=== PATIENT | male | born 1940 | race Caucasian/White ===

== ENCOUNTER 2020-07-16 07:33 | Outpatient (CLI) | payer MEDICARE, OTHER ==
[2020-07-16 12:02] LABS: #Basophils 0.1 thou/uL (0.0-0.2); #Eosinphils 0.2 thou/uL (0.0-0.7); #Lymphocytes 1.4 thou/uL (1.20-3.40); #Monocytes 0.4 thou/uL (0.11-0.59); #Neutrophils 2.9 thou/uL (1.40-6.50); %Basophils 1.5 % (0.0-1.0); %Eosinophils 3.2 % (0.0-10.0); %Lymphocytes 28.6 % (21.0-51.0); %Monocytes 7.3 % (0.0-10.0); %Neutrophils 59.4 % (42.0-75.0); Hemoglobin 13.7 g/dL (14.0-18.0); Mean Corpuscular HGB CONC 32.9 g/dL (32.0-36.0); Mean Corpuscular Hemoglobin 30.9 pg (27.0-31.0); Mean Platelet Volume 8.2 fL (7.4-10.4); Platelet Count 217 thou/uL (130-400); RBC Distribution Width 12.5 % (11.5-14.5); Red Blood Cell (RBC) Count 4.43 mill/uL (4.70-6.10); White Blood Cell (WBC) Count 4.8 thou/uL (4.8-10.8)
[2020-07-16 12:10] LABS: Bacteria/HPF None Seen HPF (None Seen); Bilirubin Negative (Negative); Blood, Urine Negative (Negative); Clarity Clear (Clear); Glucose, Urine (Dipstick) Normal (Negative); Ketone, Urine Negative (Negative); Leukocyte 25 Leu/uL (Negative); Nitrite Negative (Negative); Protein, Urine (Dipstick) Negative (Neg-Trace); RBC/HPF 0-3 HPF (0-3); Specific Gravity, Urine 1.026 (1.002-1.036); Squamous Epithelial 0-3 HPF (0-3); Urobilinogen Normal mg/dL (Less than 2); WBC/HPF 0-3 HPF (0-3); pH, Urine 5.5 (5.0-9.0)
[2020-07-16 13:02] LABS: Anion Gap 15 mmol/L (10-20); BUN (Urea Nitrogen) 37 mg/dL (8.4-25.7); Calc. Creatinine Clearance 0 mL/min (70-130); Calcium 9.3 mg/dL (7.8-10.44); Carbon Dioxide 24 mmol/L (23-31); Chloride 104 mmol/L (98-107); Estimated GFR-MDRD 37; Glucose 202 mg/dL (83-110); Sodium 139 mmol/L (136-145)
[2020-07-16 17:12] LABS: SARS-CoV-2 MS2 Positive; SARS-CoV-2 N Gene Negative; SARS-CoV-2 S Gene Negative; SARS-CoV-2 by NAA Not Detected (NotDetected); SARS-CoV-2 orf1ab Negative
--- NOTE | 2020-07-20 15:19 | EKG ---
Test Reason : Blood Pressure : / mmHG Vent. Rate : 066 BPM Atrial Rate : 066 BPM P-R Int : 190 ms QRS Dur : 098 ms QT Int : 428 ms P-R-T Axes : 061 -14 044 degrees QTc Int : 448 ms Sinus rhythm with occasional Premature ventricular complexes Otherwise normal ECG No previous ECGs available Confirmed by ISRAEL ORTIZ M.D. ([id number]) on 07/20/2020 3:19:16 PM Referred By: RICKEYRO Confirmed By:ISRAEL ORTIZ M.D.
== END 2020-07-16 07:34 | disposition home or self-care (01) ==
LOC: LABBT 07:33
PROVIDERS: ATTEND Orthopaedic Surgery
DX: Z01.818 Encounter for other preprocedural examination (principal); Z20.828 Contact with and (suspected) exposure to other viral communicable diseases; M17.11 Unilateral primary osteoarthritis, right knee
CPT/HCPCS: 80048; 81001; 85025; 85610; 87081; 93005; U0003; 87635; 93010

== ENCOUNTER 2020-07-16 09:00 | Inpatient (IN) | payer MEDICARE, OTHER ==
[2020-07-16 14:20] VITALS: BMI 36.4
[2020-07-20] MEDS ORDERED: Tranexamic Acid 1,000 MG/10 ML VIAL ONE ×2 (06:56→11:34)
[2020-07-20] MEDS ORDERED: Sodium Chloride 0.9% 100 ML ONE (06:57)
[2020-07-20] MEDS ORDERED: Fentanyl 100 MCG/2 ML VIAL ONE ×5 (07:43→12:36)
[2020-07-20] MEDS ORDERED: Midazolam HCl 2 mg/2 ml Vial ONE (07:43)
[2020-07-20] MEDS ORDERED: Lidocaine 1% (PF) 30 ML VIAL ONE (07:43)
[2020-07-20] MEDS ORDERED: Fentanyl 100 MCG/2 ML VIAL IV PRN (09:05)
[2020-07-20] MEDS ORDERED: traMADol HCl 50 MG TAB PO PRN (09:15)
[2020-07-20] MEDS ORDERED: Zolpidem Tartrate 5 MG TAB PO PRN ×2 (09:15→09:40)
[2020-07-20] MEDS ORDERED: Promethazine HCl 25 MG/ML VIAL IM PRN ×2 (09:15→09:40)
[2020-07-20] MEDS ORDERED: Ondansetron PF 4 MG/2 ML Vial IVP PRN ×2 (09:15→09:40)
[2020-07-20] MEDS ORDERED: Ropivacaine HCl/PF 250 ML in Premix Bag 1 BAG NERVE BLCK SCH (09:15)
[2020-07-20] MEDS ORDERED: Acetaminophen 325 MG TAB PO PRN ×2 (09:15→09:40)
[2020-07-20] MEDS ORDERED: HYDROcodone/Acetaminophen 10/325 mg Tablet PO PRN (09:15)
[2020-07-20] MEDS ORDERED: diphenhydrAMINE 25 MG CAP PO PRN (09:40)
[2020-07-20] MEDS ORDERED: Tranexamic Acid 1,000 MG in Sodium Chloride 0.9% 100 ML IVPB SCH (09:45)
[2020-07-20] MEDS ORDERED: Bupivacaine PF 0.5% 30 ML VIAL ONE (09:56)
[2020-07-20] MEDS ORDERED: PROPOFOL 200 MG/20 ML VIAL ONE (11:56)
[2020-07-20] MEDS ORDERED: Ropivacaine 0.2% HCl/PF (40 MG/20 ML VIAL) ONE (11:56)
[2020-07-20] MEDS ORDERED: Lidocaine 1% PF 5 ML VIAL ONE (11:56)
[2020-07-20] MEDS ORDERED: Bupivacaine HCl 0.5%/Epinephrine 1:200,000/PF 30 ml Vial ONE (11:56)
[2020-07-20] MEDS ORDERED: Bupivacaine 0.5% 10 ML VIAL ONE ×2 (13:47)
[2020-07-20] MEDS ORDERED: Ropivacaine 0.2% HCl/PF 20 ML ONE (14:08)
[2020-07-20] MEDS: CEFAZOLIN 2 GM in Premix Bag 1 BAG IVPB SCH ×2 (14:45→23:30)
[2020-07-20] MEDS: HYDROcodone/Acetaminophen 10/325 mg Tablet PO PRN ×2 (14:52→20:16)
[2020-07-20] MEDS: Sodium Chloride 0.9% 1,000 ML IV SCH ×2 (14:55→20:14)
[2020-07-20] MEDS: metFORMIN 500 MG TAB PO SCH (17:24)
[2020-07-20] MEDS: traMADol HCl 50 MG TAB PO PRN (17:24)
[2020-07-20] MEDS: Aspirin 81 mg Enteric Coated Tablet PO SCH (20:15)
[2020-07-20] MEDS: Tamsulosin HCl 0.4 MG CAP PO SCH (20:16)
[2020-07-20] MEDS: Allopurinol 300 MG TAB PO SCH (20:16)
[2020-07-20] MEDS: Atorvastatin Calcium 40 MG TAB PO SCH (20:16)
[2020-07-21] MEDS: HYDROcodone/Acetaminophen 10/325 mg Tablet PO PRN ×3 (01:55→17:10)
[2020-07-21 05:03] LABS: Hemoglobin 11.5 g/dL (14.0-18.0); Mean Corpuscular HGB CONC 33.3 g/dL (32.0-36.0); Mean Corpuscular Hemoglobin 31.2 pg (27.0-31.0); Mean Corpuscular Volume 93.7 fL (78.0-98.0); Mean Platelet Volume 8.1 fL (7.4-10.4); Platelet Count 189 thou/uL (130-400); RBC Distribution Width 12.7 % (11.5-14.5); Red Blood Cell (RBC) Count 3.69 mill/uL (4.70-6.10); White Blood Cell (WBC) Count 6.9 thou/uL (4.8-10.8)
[2020-07-21] MEDS: Sodium Chloride 0.9% 1,000 ML IV SCH ×2 (05:11→14:14)
--- NOTE | 2020-07-21 05:28 | HP ---
HISTORY OF PRESENT ILLNESS: The patient referred to the hospitalist service by orthopedic surgeon, Dr. Efrain Murdock. The patient had recurrent pain, joint fluid, requiring steroid infusions, was finally advised that the only way to avoid continuing injections was a total knee replacement. He had a right total knee replacement today. PAST MEDICAL HISTORY: Pertinent for hypertension, diabetes mellitus type 2, benign prostatic hypertrophy with prostatism, dyslipidemia, gout, coronary artery disease, post single-vessel SAW OPERATOR. CURRENT MEDICATIONS: Include multiple [id number]-wzwyybd supplements which will not be included, takes 1. Vitamin D3 one tab a day. 2. Metformin 1000 mg twice a day. 3. Flomax 0.4 mg a day. 4. Aspirin 81 mg a day. 5. Rybelsus 7 mg a day. 6. Toprol 25 mg a day. 7. Lipitor 40 mg a day. 8. Allopurinol 300 mg a day. 9. Glipizide 5 mg a day. 10. Losartan/HCTZ 100/25 once a day. ALLERGIES: NO KNOWN DRUG ALLERGIES. PAST SURGICAL HISTORY: He has had bladder cancer, he had a chemotherapy infusion into his bladder, no surgery. He has had cataract surgery bilateral. FAMILY HISTORY: Negative for coronary artery disease. His mother had hypertension and diabetes. SOCIAL HISTORY: . Nonsmoker. Drinks one beer a day occasionally. No illicit drugs. REVIEW OF SYSTEMS: GENERAL: Occasional dizziness. No fainting. No falls. EYES: No double vision, blurred vision, or flashing lights. EAR, NOSE, AND THROAT: No ear pain or drainage. No nasal bleeding. No trouble swallowing. CARDIAC: No chest pain, orthopnea, or paroxysmal nocturnal dyspnea. RESPIRATIONS: No cough, wheezing, or asthma. GASTROINTESTINAL: No nausea, vomiting, diarrhea, or constipation. GENITOURINARY: No hematuria or dysuria. He does have x3 nocturia. MUSCULOSKELETAL: He has no pain or swelling in his legs or muscles except for the pain in his right knee from the surgery. SKIN: No bruising, bleeding, or rash. HEME/LYMPH: No tender or swollen lymph nodes in axilla, inguinal, or cervical area. NEUROLOGIC: No strokes, seizures, or focal weakness. PHYSICAL EXAMINATION: GENERAL: He is alert, pleasant, cooperative man, in no acute distress. VITAL SIGNS: Blood pressure 160/84, temperature 96.2, heart rate was 60, respirations 20. HEAD, EYES, EARS, NOSE, AND THROAT: Reveal pupils equal and round with implants. Extraocular movements are intact. Sclerae are white. Tympanic membranes are clear. Nose is clear. Oral mucous membranes are wet. NECK: Supple without jugular venous distention, adenopathy, or thyromegaly. CHEST: Clear to auscultation and percussion. HEART: Had a regular rate and rhythm without murmurs or gallops. ABDOMEN: Soft. Bowel sounds are normal. There is no hepatosplenomegaly. No masses. No rebound. EXTREMITIES: Reveal trace edema with no cyanosis or clubbing. PULSES: Carotid, radial, femoral, and dorsalis pedis pulses are intact. HEME/LYMPH: No tender or swollen lymph nodes in axilla, inguinal, or cervical area. NEUROLOGIC: Moves all extremities. Cranial nerves 2 through 12 are intact. LABORATORY DATA: COVID negative. Chemistries; creatinine 1.76. Lytes are balanced. BUN 37, blood sugar 202. White count 4.8, hemoglobin 13.7, platelet count 207,000. ADMITTING DIAGNOSES: Post right total knee replacement, diabetes mellitus type 2 with chronic kidney disease stage 3, hypertension, coronary artery disease, prostatism, dyslipidemia, gout. The patient is stable. Postoperative, he is having some pain. Pain medicines have been ordered by Orthopedic Surgery. He may continue his regular home medicines. Incidentally, his EKG revealed normal sinus rhythm with occasional PVCs, otherwise normal, reviewed by me. Job ID: [id number]
[2020-07-21] MEDS ORDERED: Dextrose 50% Abboject 50 ML SYRINGE SLOW IVP PRN (05:48)
[2020-07-21] MEDS ORDERED: Dextrose 5% in Water 1,000 ML IV PRN (05:48)
[2020-07-21] MEDS: HumaLOG 300 UNITS/3 ML VIAL SC PRN ×4 (06:18→22:27)
[2020-07-21] MEDS: glipiZIDE 5 MG TAB PO SCH (06:34)
[2020-07-21 08:20] LABS: #Eosinphils 0.1 thou/uL (0.0-0.7); #Lymphocytes 0.9 thou/uL (1.20-3.40); #Monocytes 0.6 thou/uL (0.11-0.59); #Neutrophils 5.7 thou/uL (1.40-6.50); %Basophils 0.4 % (0.0-1.0); %Eosinophils 1.9 % (0.0-10.0); %Lymphocytes 12.7 % (21.0-51.0); %Monocytes 8.1 % (0.0-10.0); %Neutrophils 76.9 % (42.0-75.0); Hemoglobin 11.5 g/dL (14.0-18.0); Mean Corpuscular HGB CONC 32.5 g/dL (32.0-36.0); Mean Corpuscular Hemoglobin 30.5 pg (27.0-31.0); Platelet Count 197 thou/uL (130-400); RBC Distribution Width 12.8 % (11.5-14.5); Red Blood Cell (RBC) Count 3.77 mill/uL (4.70-6.10); White Blood Cell (WBC) Count 7.4 thou/uL (4.8-10.8)
--- NOTE | 2020-07-21 08:37 | PRG ---
DATE OF SERVICE: 07/21/2020 SUBJECTIVE: Sanya is an 80-year-old male postop day 1 from right total knee arthroplasty. He is doing relatively well. He did have some discomfort last night. He describes this as 08/08, but we have obtained control of it with oral and IV medications. OBJECTIVE: VITAL SIGNS: Temperature 98.8, pulse 70, respiratory rate 18, blood pressure is 129/69. GENERAL: He is alert and oriented to person, place, time, and situation. Responsive and appropriate with examiner. EXTREMITIES: Incision is clean. No strike through. No erythema. He is neurovascularly intact in the right lower extremity. LABORATORY DATA: Hemoglobin and hematocrit 11.5 and 34.6. IMPRESSION: An 80-year-old male postop day 1 right total knee arthroplasty, doing well. PLAN: Continue current care. Probable discharge/transfer to skilled facility postop day 3. Job ID: [id number]
[2020-07-21 08:41] LABS: Anion Gap 14 mmol/L (10-20); BUN (Urea Nitrogen) 19 mg/dL (8.4-25.7); Calc. Creatinine Clearance 76 mL/min (70-130); Calcium 8.1 mg/dL (7.8-10.44); Carbon Dioxide 24 mmol/L (23-31); Chloride 103 mmol/L (98-107); Estimated GFR-MDRD 48; Glucose 263 mg/dL (83-110); Potassium 3.7 mmol/L (3.5-5.1); Sodium 137 mmol/L (136-145)
[2020-07-21] MEDS ORDERED: Non-Formulary Item 1 EACH (Multivitamin [Multi-Vitamin Daily] 1 TABLET Tablet) PO SCH (09:00)
[2020-07-21] MEDS ORDERED: Aspirin 81 mg Enteric Coated Tablet PO SCH (09:00)
[2020-07-21] MEDS: Aspirin 81 mg Enteric Coated Tablet PO SCH ×2 (09:19→22:00)
[2020-07-21] MEDS: Losartan/Hydrochlorothiazide 100 mg/25 mg Tablet PO SCH (09:20)
[2020-07-21] MEDS: Ferrous Gluconate 324 MG TAB PO SCH ×2 (09:20→22:00)
[2020-07-21] MEDS: Multivitamin W/ Minerals 1 TAB PO SCH (09:20)
[2020-07-21] MEDS: metFORMIN 500 MG TAB PO SCH ×2 (09:20→17:09)
[2020-07-21] MEDS: Magnesium Oxide 400 MG TAB PO SCH (09:20)
[2020-07-21] MEDS: Senokot S 8.6-50 MG TAB PO SCH ×2 (09:21→22:00)
[2020-07-21] MEDS: Ascorbic Acid 500 mg Chewable Tablet PO SCH (09:21)
[2020-07-21] MEDS: Cholecalciferol 1,000 UNITS (25 MCG) TAB PO SCH (09:21)
--- NOTE | 2020-07-21 12:48 | OP ---
DATE OF PROCEDURE: 07/20/2020 PREOPERATIVE DIAGNOSIS: Right knee osteoarthrosis. POSTOPERATIVE DIAGNOSIS: Right knee osteoarthrosis. PROCEDURE PERFORMED: Right total knee replacement using [employer] pinless navigation. PRISON OFFICER: Wyatt Parekh PA-C ESTIMATED BLOOD LOSS: Minimal. COMPLICATIONS: None. ANESTHESIA: The patient did have a general anesthetic as well as a preoperative block. IMPLANTS: To the right knee include [employer] total knee system. The femur was a size 5 cruciate-retaining right femur. We used a size 4 primary tibial baseplate. We used a 4 x 9 mm CS X3 tibial poly, and an asymmetric 32 x 10 X3 patella. DISPOSITION: He did go to recovery room in stable condition. INDICATIONS: This is an 80-year-old male, who is presenting for right knee replacement after failing all nonoperative treatment for the right knee pain. PROCEDURE IN DETAIL: After all appropriate consent forms were explained and signed, the patient was taken back to the operating room and at this time was given general anesthetic. Once the level of anesthesia was appropriate, a well-padded tourniquet was placed on the right leg, and the leg was then prepped and draped in standard surgical fashion. The limb was exsanguinated and tourniquet taken up to 300 mmHg. Midline incision was made with a 10 blade down through the skin and subcutaneous tissue. Bovie electrocautery was used to coagulate any brisk venous bleeding. A new blade was used to make a medial parapatellar arthrotomy. Small subperiosteal release was performed medially and excess fat pad was removed. The knee was flexed up to gain access to the femur. The femur was navigated and distal femoral resection was made. Epicondylar access was used to align our sizing jig and this was pinned in place. We sized our femur to be a size 5 cruciate-retaining right femur. 4:1 cutting block was applied and pinned. Anterior and posterior chamfer cuts were then made. We navigated out our proximal tibia and made our proximal tibial resection. Spreaders were used to remove any posterior osteophytes off the back of the femur as well as remaining meniscal tissue. A long alignment conner was then used to achieve correct rotation of our tibial baseplate and we used a size 4 primary tibial baseplate was chosen. This was pinned in place. We trialed the polyethylene and we used a 4 x 9 mm CS X3 tibial poly gave us full extension and good stability throughout range of motion. Two towel clips and a saw were used to cut our patella. Three lug nuts were drilled and an asymmetric 32 x 10 X3 patella was trialed which sat nicely in the trochlear groove. We then drilled our femur and punched our tibia. All components were removed. The knee was thoroughly irrigated and dried. Cement was mixed into the cement gun on the back table. Components were then placed. The knee was held out in full extension until the cement had dried. All excess bone cement was removed. Multiple #2 Vicryl stitches as well as a Quill were used to close our extensor mechanism. 0 Quill followed by a running Monoderm was then used to close the skin. Surgicel glue was then used on the skin. Once this had dried, soft tissue dressing was applied to the limb, tourniquet was let down, and the toes pinked up nicely. The patient was then awakened and taken to the recovery room in stable condition. All counts were correct at the end of the case. The patient did receive preoperative IV antibiotics. The patient was injected with Marcaine for postoperative pain relief. The payroll human resources assistant surgeon was present throughout the procedure, including the approach, placement of implants, and closure. Job ID: [id number]
--- NOTE | 2020-07-21 16:10 | PDOC.HOSPP ---
- Subjective Encounter Date: 07/21/20 Encounter Time: 16:10 Subjective: f/u s/p R TKA POD #1. Some knee pain but working with PT/OT. - Objective Vital Signs & Weight: Vital Signs (12 hours) Temp Pulse Resp BP Pulse Ox 07/21/20 11:22 98.0 F 64 16 140/73 96 07/21/20 08:00 97.9 F 63 16 118/68 91 L Weight Admit Weight 284 lb Weight 284 lb I&O: 07/20/20 07/21/20 07/22/20 06:59 06:59 06:59 Intake Total 2330 Output Total 1200 Balance 1130 Result Diagrams: 07/21/20 08:05 07/21/20 08:05 Additional Labs: Accuchecks 07/21/20 07/21/20 07/21/20 15:48 11:33 06:16 POC Glucose 270 H 217 H 268 H Laboratory Tests 07/16/20 07/21/20 10:00 04:39 Hgb 11.5 L Creatinine 1.76 H Hospitalist ROS - Medication Medications: Active Medications Generic Name Dose Route Start Last Admin Trade Name Freq PRN Reason Stop Dose Admin Hydrocodone Bitart/Acetaminophen 2 tab 07/20/20 09:15 07/21/20 06:15 Hydrocodone/Acetaminophen 10/325 Mg Tablet PO 2 tab Q4H PRN Administration PAIN (4-6) Allopurinol 300 mg 07/20/20 21:00 07/20/20 20:16 Allopurinol 300 Mg Tab PO 300 mg HS ARTUR Administration Ascorbic Acid 500 mg 07/21/20 09:00 07/21/20 09:21 Ascorbic Acid 500 Mg Chewable Tablet PO 500 mg DAILY ARTUR Administration Aspirin 81 mg 07/20/20 21:00 07/21/20 09:19 Aspirin 81 Mg Enteric Coated Tablet PO 81 mg BID ARTUR Administration Atorvastatin Calcium 40 mg 07/20/20 21:00 07/20/20 20:16 Atorvastatin Calcium 40 Mg Tab PO 40 mg HS ARTUR Administration Cholecalciferol 2,000 units 07/21/20 09:00 07/21/20 09:21 Cholecalciferol 1,000 Units (25 Mcg) Tab PO 2,000 units DAILY ARTUR Administration Fentanyl 50 mcg 07/20/20 09:05 07/20/20 14:40 Fentanyl 100 Mcg/2 Ml Vial IV 50 mcg Q1H PRN Administration BREAKTHROUGH PAIN Ferrous Gluconate 324 mg 07/21/20 09:00 07/21/20 09:20 Ferrous Gluconate 324 Mg Tab PO 324 mg BID ARTUR Administration Glipizide 5 mg 07/21/20 07:30 07/21/20 06:34 Glipizide 5 Mg Tab PO 5 mg DAILY-AC ARTUR Administration HCTZ/Losartan Potassium 1 tab 07/21/20 09:00 07/21/20 09:20 Losartan/Hydrochlorothiazide 100 Mg/25 Mg Tablet PO 1 tab DAILY ARTUR Administration Ropivacaine 250 ml/ Device 250 mls @ 0 mls/hr 07/20/20 09:15 07/21/20 12:58 NERVE BLCK 07/22/20 09:16 250 mls INF ARTUR Administration As Directed Sodium Chloride 1,000 mls @ 100 mls/hr 07/20/20 09:45 07/21/20 14:14 Normal Saline 0.9% IV Not Given .Q10H ARTUR Insulin Human Lispro 0 units 07/21/20 05:48 07/21/20 12:57 Humalog 300 Units/3 Ml Vial SC 4 unit .MODERATE SLIDING SC PRN Administration Moderate Correctional Scale Iron/Minerals/Multivitamins 1 tab 07/21/20 09:00 07/21/20 09:20 Multivitamin W/ Minerals 1 Tab PO 1 tab DAILY ARTUR Administration Magnesium Oxide 400 mg 07/21/20 09:00 07/21/20 09:20 Magnesium Oxide 400 Mg Tab PO 400 mg DAILY ARTUR Administration Metformin HCl 1,000 mg 07/20/20 17:00 07/21/20 09:20 Metformin 500 Mg Tab PO 1,000 mg BID-WM ARTUR Administration Metoprolol Succinate 25 mg 07/20/20 21:00 07/20/20 20:16 Metoprolol Succinate Xl 25 Mg Tab PO 25 mg HS ARTUR Administration Senna/Docusate Sodium 2 tab 07/21/20 09:00 07/21/20 09:21 Senokot S 8.6-50 Mg Tab PO 2 tab BID ARTUR Administration Sodium Chloride 10 ml 07/20/20 21:00 07/21/20 09:25 Flush - Normal Saline 10 Ml Syringe IVF 10 ml Q12HR ARTUR Administration Tamsulosin HCl 0.4 mg 07/20/20 21:00 09/21/20 20:16 Tamsulosin Hcl 0.4 Mg Cap PO 0.4 mg HS ARTUR Administration Tramadol HCl 100 mg 07/20/20 09:15 07/20/20 17:24 Tramadol Hcl 50 Mg Tab PO 100 mg Q6H PRN Administration Moderate Pain 4-6 - Exam General Appearance: NAD, awake alert Eye: PERRL, anicteric sclera ENT: normocephalic atraumatic, no oropharyngeal lesions Neck: supple, symmetric, no JVD, no thyromegaly, no lymphadenopathy Heart: RRR, no gallops, no rubs, normal peripheral pulses Heart - other findings: S1, S2 Respiratory: CTAB, no wheezes, no rales, no ronchi, normal chest expansion Gastrointestinal: soft, non-tender, non-distended, normal bowel sounds, no palpable masses Extremities: no cyanosis, 1+ LE edema Extremities - other findings: R knee with surgical dressing in place Skin: normal turgor Neurological: cranial nerve grossly intact, no new deficit Musculoskeletal: normal tone, normal strength Psychiatric: normal affect, A&O x 3 Hosp A/P (1) DM II (diabetes mellitus, type II), controlled Code(s): E11.9 - TYPE 2 DIABETES MELLITUS WITHOUT COMPLICATIONS Status: ron Plan: Labile glucose, continue Glipizide/ISS, serial accuchecks, ADA (2) HTN (hypertension) Code(s): I10 - ESSENTIAL (PRIMARY) HYPERTENSION Status: Chronic Qualifiers: Hypertension type: essential hypertension Qualified Code(s): I10 - Esse ntial (primary) hypertension Plan: Continue home BP regimen, serial BP monitoring (3) CKD (chronic kidney disease), stage III Code(s): N18.3 - CHRONIC KIDNEY DISEASE, STAGE 3 (MODERATE) Status: Chronic Plan: Avoid nephrotoxic meds and limit contrast exposure (4) CAD (coronary artery disease) Code(s): I25.10 - ATHSCL HEART DISEASE OF [place] CORONARY ARTERY W/O ANG PCTRS Status: Chronic Plan: Continue ASA/Lipitor - Plan continue antibiotics, PT/OT, social studies teacher, incentive spirometry, out of bed/ambulate, DVT proph w/SCDs Stable overall Continue routine Joint U protocol Continue ASA/Lipitor OOB with PT/OT DVT ppx AM lab: CBC
[2020-07-21] MEDS: Atorvastatin Calcium 40 MG TAB PO SCH (22:00)
[2020-07-21] MEDS: Tamsulosin HCl 0.4 MG CAP PO SCH (22:00)
[2020-07-21] MEDS: Allopurinol 300 MG TAB PO SCH (22:00)
[2020-07-22] MEDS: Sodium Chloride 0.9% 1,000 ML IV SCH ×4 (01:04→21:04)
[2020-07-22] MEDS: HYDROcodone/Acetaminophen 10/325 mg Tablet PO PRN ×3 (01:05→17:57)
[2020-07-22 05:27] LABS: Hemoglobin 11.3 g/dL (14.0-18.0); Mean Corpuscular HGB CONC 32.5 g/dL (32.0-36.0); Mean Corpuscular Hemoglobin 30.8 pg (27.0-31.0); Mean Corpuscular Volume 94.7 fL (78.0-98.0); Mean Platelet Volume 8.5 fL (7.4-10.4); Platelet Count 182 thou/uL (130-400); RBC Distribution Width 12.8 % (11.5-14.5); Red Blood Cell (RBC) Count 3.68 mill/uL (4.70-6.10); White Blood Cell (WBC) Count 8.1 thou/uL (4.8-10.8)
[2020-07-22] MEDS: HumaLOG 300 UNITS/3 ML VIAL SC PRN ×3 (06:15→16:15)
[2020-07-22] MEDS: glipiZIDE 5 MG TAB PO SCH (06:37)
[2020-07-22] MEDS: Magnesium Oxide 400 MG TAB PO SCH (09:42)
[2020-07-22] MEDS: Losartan/Hydrochlorothiazide 100 mg/25 mg Tablet PO SCH (09:42)
[2020-07-22] MEDS: Aspirin 81 mg Enteric Coated Tablet PO SCH ×2 (09:42→19:32)
[2020-07-22] MEDS: Senokot S 8.6-50 MG TAB PO SCH ×2 (09:42→19:33)
[2020-07-22] MEDS: metFORMIN 500 MG TAB PO SCH ×2 (09:43→16:14)
[2020-07-22] MEDS: Cholecalciferol 1,000 UNITS (25 MCG) TAB PO SCH (09:43)
[2020-07-22] MEDS: Ascorbic Acid 500 mg Chewable Tablet PO SCH (09:43)
[2020-07-22] MEDS: Multivitamin W/ Minerals 1 TAB PO SCH (09:43)
[2020-07-22] MEDS: Ferrous Gluconate 324 MG TAB PO SCH ×2 (09:43→19:32)
[2020-07-22] MEDS ORDERED: Bisacodyl 10 MG SUPP PR PRN ×2 (10:23→14:31)
[2020-07-22] MEDS ORDERED: Calcium Carbonate 500 MG ChewTAB PO PRN (10:39)
--- NOTE | 2020-07-22 10:43 | PRG ---
DATE OF SERVICE: 07/22/2020 SUBJECTIVE: Sanya is an 80-year-old male, postop day #2 from a right total knee arthroplasty. His pain is improved, but he has not had a bowel movement yet and nursing staff reports some tinkling bowel sounds. OBJECTIVE: VITAL SIGNS: Temperature 97.9, pulse 71, respiratory rate 16, O2 saturation 94% on 2 L nasal cannula, blood pressure 142/70. GENERAL: He is alert and oriented to person, place, time, and situation. Responsive and appropriate with examiner. Pleasant and conversive. ABDOMEN: Abdominal exam demonstrates tinkling bowel sounds noted with auscultation in all 4 quadrants, nontender, but he is distended with tympany to percussion. EXTREMITIES: Incision is clean. No strike through, no erythema. NEUROLOGIC: He is neurovascularly intact. He does have a little bit of notable weakness. LABORATORY DATA: Hemoglobin and hematocrit 11.3 and 34.9. noted at 8.1. IMPRESSION: 1. An 80-year-old male postoperative day #2, right total knee arthroplasty. 2. Early ileus, abdominal examination looks significant for. IMPRESSION: Asymptomatic anemia. PLAN: 1. We will make him n.p.o. for now. Also, we will treat him with lactulose as well as Dulcolax suppository. He may resume a regular diet once he has had a bowel movement and his abdominal gas is cleared. 2. Continue current care. 3. Expected discharge possibly tomorrow. Hold discharge for now. Job ID: [id number]
--- NOTE | 2020-07-22 14:33 | PDOC.HOSPP ---
- Subjective Encounter Date: 07/22/20 Encounter Time: 14:25 Subjective: f/u s/p R TKA POD #1. c/o no BM x 3 days but has flatus. Decreased appetite but no N/V. Minimal R knee pain. No dysuria. - Objective Vital Signs & Weight: Vital Signs (12 hours) Temp Pulse Resp BP Pulse Ox 07/22/20 12:00 91 L 07/22/20 10:38 97.5 F L 74 16 119/67 91 L 07/22/20 08:00 94 L 07/22/20 07:30 97.9 F 71 16 142/70 H 94 L 07/22/20 04:00 99.2 F 74 18 120/68 94 L Weight Admit Weight 284 lb Weight 284 lb I&O: 07/21/20 07/22/20 07/23/20 06:59 06:59 06:59 Intake Total 2330 2480 Output Total 1200 1700 Balance 1130 780 Result Diagrams: 07/22/20 04:53 07/21/20 08:05 Additional Labs: Accuchecks 07/22/20 07/22/20 07/21/20 10:48 05:51 21:24 POC Glucose 226 H 202 H 271 H 07/21/20 15:48 POC Glucose 270 H Laboratory Tests 07/16/20 07/21/20 10:00 04:39 Hgb 11.5 L Creatinine 1.76 H Hospitalist ROS - Medication Medications: Active Medications Generic Name Dose Route Start Last Admin Trade Name Freq PRN Reason Stop Dose Admin Hydrocodone Bitart/Acetaminophen 2 tab 07/20/20 09:15 07/22/20 09:41 Hydrocodone/Acetaminophen 10/325 Mg Tablet PO 2 tab Q4H PRN Administration PAIN (4-6) Allopurinol 300 mg 07/20/20 21:00 07/21/20 22:00 Allopurinol 300 Mg Tab PO 300 mg HS ARTUR Administration Ascorbic Acid 500 mg 07/21/20 09:00 07/22/20 09:43 Ascorbic Acid 500 Mg Chewable Tablet PO 500 mg DAILY ARTUR Administration Aspirin 81 mg 07/20/20 21:00 07/22/20 09:42 Aspirin 81 Mg Enteric Coated Tablet PO 81 mg BID ARTUR Administration Atorvastatin Calcium 40 mg 07/20/20 21:00 07/21/20 22:00 Atorvastatin Calcium 40 Mg Tab PO 40 mg HS ARTUR Administration Calcium Carbonate 1,000 mg 07/22/20 10:39 07/22/20 10:52 Calcium Carbonate 500 Mg Chewtab PO 1,000 mg Q4H PRN Administration Heartburn or Indigestion Cholecalciferol 2,000 units 07/21/20 09:00 07/22/20 09:43 Cholecalciferol 1,000 Units (25 Mcg) Tab PO 2,000 units DAILY ARTUR Administration Fentanyl 50 mcg 07/20/20 09:05 07/20/20 14:40 Fentanyl 100 Mcg/2 Ml Vial IV 50 mcg Q1H PRN Administration BREAKTHROUGH PAIN Ferrous Gluconate 324 mg 07/21/20 09:00 07/22/20 09:43 Ferrous Gluconate 324 Mg Tab PO 324 mg BID ARTUR Administration Glipizide 5 mg 07/21/20 07:30 07/22/20 06:37 Glipizide 5 Mg Tab PO 5 mg DAILY-AC ARTUR Administration HCTZ/Losartan Potassium 1 tab 07/21/20 09:00 07/22/20 09:42 Losartan/Hydrochlorothiazide 100 Mg/25 Mg Tablet PO 1 tab DAILY ARTUR Administration Sodium Chloride 1,000 mls @ 100 mls/hr 07/20/20 09:45 07/22/20 11:05 Normal Saline 0.9% IV Not Given .Q10H [facility] Insulin Human Lispro 0 units 07/21/20 05:48 07/22/20 10:54 Humalog 300 Units/3 Ml Vial SC 4 unit .MODERATE SLIDING SC PRN Administration Moderate Correctional Scale Iron/Minerals/Multivitamins 1 tab 07/21/20 09:00 07/22/20 09:43 Multivitamin W/ Minerals 1 Tab PO 1 tab DAILY ARTUR Administration Magnesium Oxide 400 mg 07/21/20 09:00 07/22/20 09:42 Magnesium Oxide 400 Mg Tab PO 400 mg DAILY ARTUR Administration Metformin HCl 1,000 mg 07/20/20 17:00 07/22/20 09:43 Metformin 500 Mg Tab PO 1,000 mg BID-WM ARTUR Administration Metoprolol Succinate 25 mg 07/20/20 21:00 07/21/20 22:00 Metoprolol Succinate Xl 25 Mg Tab PO 25 mg HS ARTUR Administration Senna/Docusate Sodium 2 tab 07/21/20 09:00 07/22/20 09:42 Senokot S 8.6-50 Mg Tab PO 2 tab BID ARTUR Administration Sodium Chloride 10 ml 07/20/20 21:00 07/22/20 09:53 Flush - Normal Saline 10 Ml Syringe IVF 10 ml Q12HR ARTUR Administration Tamsulosin HCl 0.4 mg 07/20/20 21:00 07/21/20 22:00 Tamsulosin Hcl 0.4 Mg Cap PO 0.4 mg HS ARTUR Administration Tramadol HCl 100 mg 07/20/20 09:15 07/20/20 17:24 Tramadol Hcl 50 Mg Tab PO 100 mg Q6H PRN Administration Moderate Pain 4-6 - Exam General Appearance: NAD, awake alert Eye: PERRL, anicteric sclera ENT: normocephalic atraumatic, no oropharyngeal lesions Neck: supple, symmetric, no JVD, no thyromegaly, no lymphadenopathy Heart: RRR, no gallops, no rubs, normal peripheral pulses Heart - other findings: S1, S2 Respiratory: CTAB, no wheezes, no rales, no ronchi Respiratory - other findings: diminished in bases Gastrointestinal: no palpable masses, no guarding, no rigidity, diminished bowl sounds Gastrointestinal - other findings: distended, Extremities: no cyanosis Extremities - other findings: RLE edema and post-surgical changes of the knee Skin: normal turgor Neurological: cranial nerve grossly intact, no new deficit Musculoskeletal: normal tone, generalized weakness Psychiatric: normal affect, A&O x 3 Hosp A/P (1) Constipation Code(s): K59.00 - CONSTIPATION, UNSPECIFIED Status: Acute Qualifiers: Constipation type: slow transit constipation Qualified Code(s): K59.01 - Slow transit constipation Plan: Add Dulcolax supp MS q8h prn, start Mag Citrate 300ml x 1 now, Senokot-S BID (2) DM II (diabetes mellitus, type II), controlled Code(s): E11.9 - TYPE 2 DIABETES MELLITUS WITHOUT COMPLICATIONS Status: Chronic Plan: Continue Glipizide/Metformin, ISS, serial accuchecks (3) HTN (hypertension) Code(s): I10 - ESSENTIAL (PRIMARY) HYPERTENSION Status: Chronic Qualifiers: Hypertension type: essential hypertension Qualified Code(s): I10 - Essential (primary) hypertension Plan: Stable currently, continue home BP regimen (4) CKD (chronic kidney disease), stage III Code(s): N18.3 - CHRONIC KIDNEY DISEASE, STAGE 3 (MODERATE) Status: Chronic (5) CAD (coronary artery disease) Code(s): I25.10 - ATHSCL HEART DISEASE OF [place] CORONARY ARTERY W/O ANG PCTRS Status: Chronic - Plan plan discussed w/ family, PT/OT, forensic social worker, incentive spirometry, out of bed/ambulate, DVT proph w/SCDs Stable overall Continue routine Joint U protocol Continue ASA/Lipitor OOB with PT/OT Dulcolax supp MS q8h PRN Magnesium citrate 300ml x 1 now DVT ppx AM lab: CBC
[2020-07-22] MEDS ORDERED: Magnesium Citrate 300 ML BOT PO SCH (14:45)
[2020-07-22] MEDS: Allopurinol 300 MG TAB PO SCH (19:32)
[2020-07-22] MEDS: Atorvastatin Calcium 40 MG TAB PO SCH (19:32)
[2020-07-22] MEDS: Tamsulosin HCl 0.4 MG CAP PO SCH (19:32)
[2020-07-22] MEDS: traMADol HCl 50 MG TAB PO PRN (19:32)
[2020-07-23 05:53] LABS: Hemoglobin 11.2 g/dL (14.0-18.0); Mean Corpuscular HGB CONC 32.7 g/dL (32.0-36.0); Mean Corpuscular Hemoglobin 30.8 pg (27.0-31.0); Mean Corpuscular Volume 94.2 fL (78.0-98.0); Mean Platelet Volume 8.6 fL (7.4-10.4); Platelet Count 186 thou/uL (130-400); RBC Distribution Width 12.8 % (11.5-14.5); Red Blood Cell (RBC) Count 3.64 mill/uL (4.70-6.10); White Blood Cell (WBC) Count 7.5 thou/uL (4.8-10.8)
[2020-07-23] MEDS: glipiZIDE 5 MG TAB PO SCH (06:05)
[2020-07-23] MEDS: Ferrous Gluconate 324 MG TAB PO SCH (09:30)
[2020-07-23] MEDS: Losartan/Hydrochlorothiazide 100 mg/25 mg Tablet PO SCH (09:30)
[2020-07-23] MEDS: Aspirin 81 mg Enteric Coated Tablet PO SCH (09:30)
[2020-07-23] MEDS: Magnesium Oxide 400 MG TAB PO SCH (09:30)
[2020-07-23] MEDS: Ascorbic Acid 500 mg Chewable Tablet PO SCH (09:30)
[2020-07-23] MEDS: Cholecalciferol 1,000 UNITS (25 MCG) TAB PO SCH (09:30)
[2020-07-23] MEDS: metFORMIN 500 MG TAB PO SCH (09:30)
[2020-07-23] MEDS: Multivitamin W/ Minerals 1 TAB PO SCH (09:31)
[2020-07-23] MEDS: Senokot S 8.6-50 MG TAB PO SCH (09:31)
--- NOTE | 2020-07-23 10:38 | PDOC.HOSPP ---
- Subjective Encounter Date: 07/23/20 Encounter Time: 10:30 Subjective: f/u for constipation with multiple BM's reported after Dulcolax/Mag citrate/Lactulose. Feels much better overall and able to participate with PT this am. - Objective Vital Signs & Weight: Vital Signs (12 hours) Temp Pulse Resp BP Pulse Ox 07/23/20 07:34 98.5 F 72 18 119/68 93 L 07/23/20 03:48 95 07/23/20 03:23 97.4 F L 69 18 146/82 H 95 07/22/20 23:44 93 L 07/22/20 23:17 98.3 F 62 16 127/67 93 L Weight Admit Weight 284 lb Weight 284 lb I&O: 07/22/20 07/23/20 07/24/20 06:59 06:59 06:59 Intake Total 2480 830 Output Total 1700 1325 Balance 780 -495 Result Diagrams: 07/23/20 05:24 07/21/20 08:05 Additional Labs: Accuchecks 07/23/20 07/22/20 07/22/20 05:42 20:00 15:31 POC Glucose 236 H 201 H 264 H 07/22/20 10:48 POC Glucose 226 H Laboratory Tests 07/16/20 07/21/20 10:00 04:39 Hgb 11.5 L Creatinine 1.76 H Hospitalist ROS - Medication Medications: Active Medications Generic Name Dose Route Start Last Admin Trade Name Freq PRN Reason Stop Dose Admin Hydrocodone Bitart/Acetaminophen 1 tab 07/20/20 09:15 07/23/20 06:05 Hydrocodone/Acetaminophen 10/325 Mg Tablet PO 1 tab Q4H PRN Administration Pain (1-3) Hydrocodone Bitart/Acetaminophen 2 tab 07/20/20 09:15 07/22/20 17:57 Hydrocodone/Acetaminophen 10/325 Mg Tablet PO 2 tab Q4H PRN Administration PAIN (4-6) Allopurinol 300 mg 07/20/20 21:00 07/22/20 19:32 Allopurinol 300 Mg Tab PO 300 mg HS [facility] Administration Ascorbic Acid 500 mg 07/21/20 09:00 07/23/20 09:30 Ascorbic Acid 500 Mg Chewable Tablet PO 500 mg DAILY [facility] Administration Aspirin 81 mg 07/20/20 21:00 07/23/20 09:30 Aspirin 81 Mg Enteric Coated Tablet PO 81 mg BID [facility] Administration Atorvastatin Calcium 40 mg 07/20/20 21:00 07/22/20 19:32 Atorvastatin Calcium 40 Mg Tab PO 40 mg HS [facility] Administration Bisacodyl 10 mg 07/22/20 14:31 07/22/20 16:14 Bisacodyl 10 Mg Supp OK 10 mg Q8H PRN Administration Constipation Calcium Carbonate 1,000 mg 07/22/20 10:39 07/22/20 10:52 Calcium Carbonate 500 Mg Chewtab PO 1,000 mg Q4H PRN Administration Heartburn or Indigestion Cholecalciferol 2,000 units 07/21/20 09:00 07/23/20 09:30 Cholecalciferol 1,000 Units (25 Mcg) Tab PO 2,000 units DAILY [facility] Administration Fentanyl 50 mcg 07/20/20 09:05 07/20/20 14:40 Fentanyl 100 Mcg/2 Ml Vial IV 50 mcg Q1H PRN Administration BREAKTHROUGH PAIN Ferrous Gluconate 324 mg 07/21/20 09:00 07/23/20 09:30 Ferrous Gluconate 324 Mg Tab PO 324 mg BID [facility] Administration Glipizide 5 mg 07/21/20 07:30 07/23/20 06:05 Glipizide 5 Mg Tab PO 5 mg DAILY-AC [facility] Administration HCTZ/Losartan Potassium 1 tab 07/21/20 09:00 07/23/20 09:30 Losartan/Hydrochlorothiazide 100 Mg/25 Mg Tablet PO 1 tab DAILY [facility] Administration Sodium Chloride 1,000 mls @ 100 mls/hr 07/20/20 09:45 07/22/20 21:04 Normal Saline 0.9% IV Not Given .Q10H [facility] Insulin Human Lispro 0 units 07/21/20 05:48 07/22/20 16:15 Humalog 300 Units/3 Ml Vial SC 6 unit .MODERATE SLIDING SC PRN Administration Moderate Correctional Scale Iron/Minerals/Multivitamins 1 tab 07/21/20 09:00 07/23/20 09:31 Multivitamin W/ Minerals 1 Tab PO 1 tab DAILY [facility] Administration Magnesium Oxide 400 mg 07/21/20 09:00 07/23/20 09:30 Magnesium Oxide 400 Mg Tab PO 400 mg DAILY [facility] Administration Metformin HCl 1,000 mg 07/20/20 17:00 07/23/20 09:30 Metformin 500 Mg Tab PO 1,000 mg BID-WM [facility] Administration Metoprolol Succinate 25 mg 07/20/20 21:00 07/22/20 19:31 Metoprolol Succinate Xl 25 Mg Tab PO 25 mg HS [facility] Administration Senna/Docusate Sodium 2 tab 07/21/20 09:00 07/23/20 09:31 Senokot S 8.6-50 Mg Tab PO Not Given BID [facility] Sodium Chloride 10 ml 07/20/20 21:00 07/23/20 09:31 Flush - Normal Saline 10 Ml Syringe IVF 10 ml Q12HR [facility] Administration Tamsulosin HCl 0.4 mg 07/20/20 21:00 07/22/20 19:32 Tamsulosin Hcl 0.4 Mg Cap PO 0.4 mg HS [facility] Administration Tramadol HCl 100 mg 07/20/20 09:15 07/22/20 19:32 Tramadol Hcl 50 Mg Tab PO 100 mg Q6H PRN Administration Moderate Pain 4-6 - Exam General Appearance: NAD, awake alert Eye: PERRL, anicteric sclera ENT: normocephalic atraumatic, no oropharyngeal lesions Neck: supple, symmetric, no JVD, no thyromegaly, no lymphadenopathy Heart: RRR, no gallops, no rubs, normal peripheral pulses Heart - other findings: S1, S2 Respiratory: CTAB, no rales, no ronchi Respiratory - other findings: diminished in bases Gastrointestinal: soft, non-tender, non-distended, normal bowel sounds Gastrointestinal - other findings: obese Extremities: no cyanosis, no clubbing Extremities - other findings: R knee edema with surgical dressing in place Skin: normal turgor Neurological: cranial nerve grossly intact, no new deficit Musculoskeletal: normal tone, generalized weakness Psychiatric: normal affect, A&O x 3 Hosp A/P (1) Constipation Code(s): K59.00 - CONSTIPATION, UNSPECIFIED Status: Acute Qualifiers: Constipation type: slow transit constipation Qualified Code(s): K59.01 - Slow transit constipation Plan: Resolved, continue routine bowel regimen (2) DM II (diabetes mellitus, type II), controlled Code(s): E11.9 - TYPE 2 DIABETES MELLITUS WITHOUT COMPLICATIONS Status: Chronic Plan: Labile, continue ISS, Glipizide/Metformin, ADA (3) HTN (hypertension) Code(s): I10 - ESSENTIAL (PRIMARY) HYPERTENSION Status: Chronic Qualifiers: Hypertension type: essential hypertension Qualified Code(s): I10 - Essential (primary) hypertension Plan: Stable, continue home BP regimen (4) CKD (chronic kidney disease), stage III Code(s): N18.3 - CHRONIC KIDNEY DISEASE, STAGE 3 (MODERATE) Status: Chronic Plan: Stable (5) CAD (coronary artery disease) Code(s): I25.10 - ATHSCL HEART DISEASE OF [place] CORONARY ARTERY W/O ANG PCTRS Status: Chronic - Plan PT/OT, bilingual social worker, incentive spirometry, out of bed/ambulate, DVT proph w/SCDs Stable overall Continue routine Joint U protocol Continue ASA/Lipitor OOB with PT/OT Routine bowel regimen DVT ppx AM lab: CBC Likely home in 24h
[2020-07-23] MEDS: HYDROcodone/Acetaminophen 10/325 mg Tablet PO PRN ×2 (12:07→16:00)
[2020-07-23] MEDS: HumaLOG 300 UNITS/3 ML VIAL SC PRN ×2 (12:08→16:00)
[2020-07-23 15:56] VITALS: BP 136/71; TEMP 98.9
== END 2020-07-23 16:30 | disposition home or self-care (01) | DRG 470 ==
LOC: SURG A 07-20 06:09 → EDSTATUS 07-20 09:00 → SJJU 07-20 14:29
PROVIDERS: ADMIT Orthopaedic Surgery; ATTEND Orthopaedic Surgery
PROC: 0SRC0J9 Replacement of Right Knee Joint with Synthetic Substitute, Cemented, Open Approach (ICD-10-PCS; principal; 2020-07-21)
DX: M17.11 Unilateral primary osteoarthritis, right knee (principal); E78.5 Hyperlipidemia, unspecified; M10.9 Gout, unspecified; I25.10 Atherosclerotic heart disease of native coronary artery without angina pectoris; I12.9 Hypertensive chronic kidney disease with stage 1 through stage 4 chronic kidney disease, or unspecified chronic kidney disease; E11.22 Type 2 diabetes mellitus with diabetic chronic kidney disease; N18.3 Chronic kidney disease, stage 3 (moderate); K59.01 Slow transit constipation; Z85.51 Personal history of malignant neoplasm of bladder; Z79.84 Long term (current) use of oral hypoglycemic drugs; Z79.899 Other long term (current) drug therapy; Z11.59 Encounter for screening for other viral diseases
CPT/HCPCS: 36415; 36416; 80048; 85027; C1713; C1776; J0670; J0690; J2001; J2250; J2704; J2795; J3010; J3370; J3490; J7030; S0020